=== PATIENT | male | born 1980 | race American Indian/Alaskan Native ===

== ENCOUNTER 2021-11-04 07:56 | Emergency (ER) | payer SELFPAY ==
--- NOTE | 2021-11-04 08:05 | Emergency Department Report ---
HPI - General Chief Complaint: Allergic Reaction PUI?: No Time Seen by Provider: 11/04/21 08:03 - HPI HPI: 41-year-old -[place] male with past medical history of hypertension presents to the ER today with complaints of upper lip swelling. Patient states that he started to feel a funny sensation to his lip last night while he was eating dinner, that as the night progressed, started noticing some swelling to his upper lip. He states that he took Benadryl and applied ice, but when he woke up this morning the swelling had not improved and so he came to the ER to get it checked. He denies any tongue, or throat, or any other areas of swelling. He denies any difficulty breathing, chest pain or difficulty controlling his secretions. He denies any rash, itching or pain. Patient is on lisinopril for his blood pressure which he had started about a month ago. Other than the lisinopril he denies any new medications, new facial products, new foods, and or any other new contacts and he has no prior allergic reactions to anything. He states that he is visiting from [place] and is scheduled to return home Saturday. ED Past Medical Hx - Past Medical History Previous Medical History?: Yes Hx Hypertension: Yes Additional medical history: KIDNEYSTONE - Surgical History Past Surgical History?: Yes Additional Surgical History: LITHOTRIPSY FOR KIDNEY STONES - Medications Home Medications: Home Medications Medication Instructions Recorded Confirmed Last Taken Type Amlodipine Besylate [Norvasc] 5 mg PO DAILY #30 tablet 11/04/21 Unknown Rx Prednisone [predniSONE 10 mg 10 mg PO .TAPER #1 tab.ds.pk 11/04/21 Unknown Rx (6-Day Pack, 21 Tabs)] ED Review of Systems ROS: Stated complaint: ALLERGIC REACTION Other details as noted in HPI Comment: All other systems reviewed and negative Constitutional: denies: chills, fever Eyes: denies: eye pain, eye discharge, vision change ENT: other (upper lip swelling ). denies: ear pain, throat pain, dental pain, hearing loss, epistaxis, congestion Respiratory: denies: cough, shortness of breath, SOB with exertion, SOB at rest, wheezing Cardiovascular: denies: chest pain, palpitations, dyspnea on exertion, edema, syncope, paroxysmal nocturnal dyspnea Gastrointestinal: denies: abdominal pain, nausea, diarrhea Genitourinary: denies: urgency, dysuria, frequency, hematuria, discharge, test icular pain, testicular mass Musculoskeletal: denies: back pain, joint swelling, arthralgia, myalgia Skin: denies: rash, lesions, change in color, change in hair/nails, pruritus Neurological: denies: headache, weakness, paresthesias, confusion, abnormal gait Physical Exam - Physical Exam Vital Signs: Reviewed - stable ED Medical Decision Making - Medical Decision Making Patient with upper lip swelling, but overall no swelling to his tongue or posterior pharynx, he has no drooling or trismus, he has no other areas of swelling to the rest of his body and no rash. No stridor on exam. He is not in any respiratory distress. His chest is clear to auscultation. He is well- appearing, nontoxic, and neurologically intact with a normal gait. His vital signs are stable. Patient likely has angioedema secondary to ROBIN inhibitor. Discussed this diagnosis with patient, he was instructed to stop taking the lisinopril, and he'll be switched over to Norvasc until he can follow-up with his PCP. He'll be given Solu-Medrol IM here in the ER and a prescription for prednisone taper. Patient instructed to follow-up with his PCP next week on return back home to [place]. Patient expressed understanding of all instructions and agree with plan. Patient stable at time of discharge. Critical care attestation.: If time is entered above; I have spent that time in minutes in the direct care of this critically ill patient, excluding procedure time. ED Disposition Clinical Impression: ROBIN inhibitor-aggravated angioedema Disposition: 01 HOME / SELF CARE / HOMELESS Is pt being admited?: No Does the pt Need Aspirin: No Condition: Stable Instructions: Angioedema, [id number] Additional Instructions: I recommend that you start taking the lisinopril and start taking the Norvasc to help control your blood pressure and she can follow-up with your primary care doctor when you get back to [place]. Take the prednisone pack, starting tomorrow. Follow-up with your PCP next week. Return to the ER if at any point the swelling worsens, with development of swelling to your tongue or throat, and difficulty breathing. Prescriptions: Amlodipine Besylate [Norvasc] 5 mg PO DAILY #30 tablet Prednisone [predniSONE 10 mg (6-Day Pack, 21 Tabs)] 10 mg PO .TAPER #1 tab.ds.pk Referrals: PRIMARY CARE, [Referring] - 3-5 Days Time of Disposition: 08:20 ED Physical Exam - General Limitations: No Limitations General appearance: alert, in no apparent distress - Head Head exam: Present: atraumatic, normocephalic, normal inspection - Eye Eye exam: Present: normal appearance, PERRL, EOMI Pupils: Present: normal accommodation - ENT ENT exam: Present: normal orophraynx, mucous membranes moist, other (Moderate amount of swelling noted to the upper lip, no tongue swelling, posterior pharynx normal without any apparent signs of swelling; no drooling, trismus or stridor noted) - Neck Neck exam: Present: normal inspection, full ROM. Absent: meningismus - Respiratory Respiratory exam: Present: normal lung sounds bilaterally - Cardiovascular Cardiovascular Exam: Present: regular rate, normal rhythm, normal heart sounds - Neurological Exam Neurological exam: Present: alert, oriented X3, CN II-XII intact, normal gait - Psychiatric Psychiatric exam: Present: normal affect, normal mood - Skin Skin exam: Present: intact. Absent: rash
[2021-11-04 08:08] VITALS: BP 130/85
[2021-11-04] MEDS ORDERED: methylPREDNISolone Sod Succinate 125 MG/2 ML INJ IM ONE (08:14)
== END 2021-11-04 08:55 | disposition home or self-care (01) ==
LOC: ED 07:56
DX: K13.0 Diseases of lips (principal); T46.4X5A Adverse effect of angiotensin-converting-enzyme inhibitors, initial encounter; Y92.89 Other specified places as the place of occurrence of the external cause; I10 Essential (primary) hypertension; Z87.442 Personal history of urinary calculi; Z79.899 Other long term (current) drug therapy
CPT/HCPCS: 96372; 99282; J2930